=== PATIENT | female | born 1960 | race Native Hawaiian/Other Pacific Islander ===

== ENCOUNTER 2017-11-08 18:18 | Emergency (ER) | payer OTHER ==
[~2017-11-08] VITALS: Ht 160 cm; Wt 76.7 kg
[2017-11-08 18:25] VITALS: TEMP 97.9
[2017-11-08 19:47] VITALS: BP 124/71
== END 2017-11-08 19:48 | disposition home or self-care (01) ==
LOC: ED 18:18
DX: S52.91XA Unspecified fracture of right forearm, initial encounter for closed fracture (principal); S30.0XXA Contusion of lower back and pelvis, initial encounter; W19.XXXA Unspecified fall, initial encounter
CPT/HCPCS: 99283

== ENCOUNTER 2018-08-24 22:02 | Outpatient (CLI) | payer OTHER | END 2018-08-24 22:05 | disposition short-term general hospital (02) | LOC: AMB 22:02 | DX: R44.0 Auditory hallucinations (principal) | CPT/HCPCS: A0425; A0429 ==

== ENCOUNTER 2018-08-24 22:15 | Emergency (ER) | payer OTHER ==
[~2018-08-24] VITALS: Ht 160 cm; Wt 76.7 kg
[2018-08-24 22:32] LABS: PLATELET COUNT 195 K/uL (152-353)
[2018-08-24 22:50] LABS: POTASSIUM 3.5 mmol/L (3.6-5.2); SODIUM 136 mmol/L (136-145)
[2018-08-25 03:20] VITALS: BP 118/76; TEMP 98.2
== END 2018-08-25 03:20 | disposition home or self-care (01) ==
LOC: ED 22:15
PROVIDERS: Family Medicine
DX: R44.0 Auditory hallucinations (principal); F32.89 Other specified depressive episodes; R91.1 Solitary pulmonary nodule
CPT/HCPCS: 36415; 80053; 80307; 80320; 80329; 81000; 84443; 85027; 93005; 99285